=== PATIENT | male | born 1960 | race Caucasian/White ===

== ENCOUNTER → 2018-09-23 | Outpatient (CLI) | payer OTHER ==
[2016-06-05 09:33] VITALS: BP 159/85
[~2018-09-23] MED LIST: ALFU10TA3 PO; CITA40TA12 PO; CRESTOR20 MG PO; LEVO75TA PO; OLME1TAB25 PO; flexeril
--- NOTE | 2018-09-23 15:05 | RAD ---
PQRS Compliance statement: One or more of the following individualized dose reduction techniques were utilized for this examination: 1. Automated exposure control. 2. Adjustment of the mA and/or kV according to patient size. 3. Use of iterative reconstruction technique. INDICATION: Back pain. TECHNIQUE: CT of the lumbar spine without IV contrast with multiplanar reformats COMPARISON: None FINDINGS: The lumbar spine demonstrates straightening. This could be due to muscle spasm or positioning. There are 5 lumbar type vertebral bodies. No compression deformities. Posterior fusion is seen at L4-S1 with L4 and L5 laminectomy. Multilevel intervertebral disc space narrowing is seen with osteophyte formation. Segmental analysis: L1-L2: Mild circumferential disc bulge flattening intrathecal sac. Mild bilateral facet arthropathy. Moderate bilateral neuroforamina narrowing. Prominent posterior epidural fat is seen. Moderate narrowing of the spinal canal measuring 7 mm in AP dimension. L2-L3: Mild circumferential disc bulge flattening intrathecal sac. Severe right and moderate left facet arthropathy. Moderate bilateral neuroforamina narrowing. Posterior epidural fat noted. Severe spinal canal narrowing measuring 5 mm in AP dimension. L3-L4: No disc bulge or herniation. Severe bilateral facet arthropathy. Moderate to severe bilateral neuroforamina narrowing. Spinal canal measures 1 cm in AP dimension. L4-L5: No disc bulge or herniation. Severe bilateral facet arthropathy. Severe bilateral neuroforamina narrowing. No spinal canal stenosis. L4-L5: Mild circumferential disc bulge. Severe bilateral facet arthropathy. Severe bilateral neuroforamina narrowing. Moderate bilateral SI joint arthritis. No acute fractures. IMPRESSION: 1. Status post L4-L5 laminectomy with posterior fusion at L4-S1. 2. Multilevel spinal canal narrowing and neural foramina narrowing as described above. Electronically signed by: Denny Chow DO (09/23/2018 3:02 PM) [facility]
== END | disposition home or self-care (01) ==
LOC: CT 10:44
DX: M48.061 Spinal stenosis, lumbar region without neurogenic claudication (principal); M51.16 Intervertebral disc disorders with radiculopathy, lumbar region; M46.88 Other specified inflammatory spondylopathies, sacral and sacrococcygeal region; M12.88 Other specific arthropathies, not elsewhere classified, other specified site; M25.78 Osteophyte, vertebrae
CPT/HCPCS: 72131

== ENCOUNTER → 2021-09-19 | Day surgery (SDC) | payer BC ==
[~2021-09-19] VITALS: Ht 182.9 cm; Wt 102.7 kg
[~2021-09-19] MED LIST changes: -ALFU10TA3 PO; +ALFU10TA4 PO; +CABE0.5T PO; +DILT240C33 PO; +IV RINGERS,LACTATED 1000ML 1,000 ML IV SCH; -LEVO75TA PO; +LEVO75TA90 PO; +POTA-112 PO; +PROPOFOL 10 MG/ML (20ML) VIAL. IV ONE
[2021-09-19 08:02] VITALS: BP 146/76
[2021-09-19 09:40] VITALS: BP 150/84
== END | disposition home or self-care (01) ==
LOC: ENDOS 07:27
PROVIDERS: ATTEND Internal Medicine Gastroenterology
DX: Z12.11 Encounter for screening for malignant neoplasm of colon (principal); K64.0 First degree hemorrhoids; K57.30 Diverticulosis of large intestine without perforation or abscess without bleeding; K63.89 Other specified diseases of intestine; I10 Essential (primary) hypertension; E78.00 Pure hypercholesterolemia, unspecified; E03.9 Hypothyroidism, unspecified; E66.9 Obesity, unspecified; K21.9 Gastro-esophageal reflux disease without esophagitis; M19.90 Unspecified osteoarthritis, unspecified site; F41.9 Anxiety disorder, unspecified; F32.9 Major depressive disorder, single episode, unspecified; Z79.899 Other long term (current) drug therapy; Z98.890 Other specified postprocedural states; Z88.8 Allergy status to other drugs, medicaments and biological substances
CPT/HCPCS: 45378; J2704